=== PATIENT | male | born 1980 | race Caucasian/White ===

== ENCOUNTER 2019-02-17 19:11 | Emergency (ER) | payer OTHER ==
[2019-02-17 19:41] LABS: #Basophils 0.1 thou/uL (0.0-0.2); #Lymphocytes 1.1 thou/uL (1.20-3.40); #Monocytes 0.5 thou/uL (0.11-0.59); #Neutrophils 10.1 thou/uL (1.40-6.50); %Basophils 0.7 % (0.0-1.0); %Eosinophils 0.1 % (0.0-10.0); %Lymphocytes 9.1 % (21.0-51.0); Hemoglobin 16.8 g/dL (14.0-18.0); Mean Corpuscular HGB CONC 33.5 g/dL (32.0-36.0); Mean Corpuscular Hemoglobin 27.8 pg (27.0-31.0); Mean Platelet Volume 11.2 fL (7.4-10.4); Platelet Count 265 thou/uL (130-400); RBC Distribution Width 11.4 % (11.5-14.5); Red Blood Cell (RBC) Count 6.06 mill/uL (4.70-6.10); White Blood Cell (WBC) Count 11.8 thou/uL (4.8-10.8)
[2019-02-17 19:58] LABS: ALT (SGPT) 33 U/L (8-55); AST (SGOT) 27 U/L (5-34); Albumin 5.1 g/dL (3.5-5.0); Alkaline Phosphatase 63 U/L (40-150); Anion Gap 18 mmol/L (10-20); BUN (Urea Nitrogen) 14 mg/dL (8.9-20.6); Bilirubin, Total 0.4 mg/dL (0.2-1.2); Calc. Creatinine Clearance 0 mL/min (70-130); Calcium 10.2 mg/dL (7.8-10.44); Carbon Dioxide 25 mmol/L (22-29); Chloride 99 mmol/L (98-107); Estimated GFR-MDRD Greater than 90; Globulin 3.1 g/dL (2.4-3.5); Glucose 173 mg/dL (70-105); Lipase 13 U/L (8-78); Potassium 4.2 mmol/L (3.5-5.1); Protein, Total 8.2 g/dL (6.0-8.3); Sodium 138 mmol/L (136-145)
--- NOTE | 2019-02-17 19:58 | CT ---
Head CT without contrast: 02/17/2019 COMPARISON: None HISTORY: Headache, nausea, vomiting FINDINGS: Imaged paranasal sinuses and mastoid air cells well aerated. No displaced calvarial fractur e, intracranial hemorrhage, midline shift, or mass effect. IMPRESSION: No intracranial hemorrhage.
[2019-02-17] MEDS ORDERED: Ondansetron PF 4 MG/2 ML Vial ONE (20:08)
[2019-02-17] MEDS ORDERED: Morphine 4 MG/ML VIAL ONE (20:08)
--- NOTE | 2019-02-17 21:13 | CT ---
CT ANGIOGRAM OF THE HEAD 02/17/19 COMPARISON: None. HISTORY: Pain behind the right eye. TECHNIQUE: Axial CT imaging obtained at 1.5 mm intervals from vertex through skull base with IV contrast. Sanchez l and sagittal 3D reformatted imaging obtained. FINDINGS: The distal vertebral arteries are patent. The basilar artery and its branches are patent. There is no saccular aneurysm, high grade stenosis or vascular occlusion involving the posterior circulation. The imaged extracranial ICA is patent. The M1 segment and the MCA bifurcation appears unremarkable. The A1 segment, region of the anterior c ommunicating artery, and the distal DAYANA branches appear unremarkable. Distal MCA branches appear unre markable with no saccular aneurysm, high grade stenosis, or vascular occlusion seen involving the an terior circulation. No acute osseous abnormality. IMPRESSION: Unremarkable CT angiogram of the head. POS: OFF
[2019-02-17 21:29] LABS: Bilirubin Negative (Negative); Blood, Urine Negative (Negative); Clarity Clear (Clear); Glucose, Urine (Dipstick) Negative (Negative); Leukocyte Negative (Negative); Nitrite Negative (Negative); Protein, Urine (Dipstick) Negative (Neg-Trace); Specific Gravity, Urine 1.015 (1.005-1.030); Urobilinogen 0.2 mg/dL (0.2-1.0); pH, Urine 7.5 (5.0-9.0)
== END 2019-02-17 21:57 | disposition home or self-care (01) ==
LOC: SCSER 19:11
DX: R51 Headache (principal)
CPT/HCPCS: 70450; 70496; 80053; 81003; 83605; 83690; 85025; 96361; 96374; 96375; J2270; J2405

== ENCOUNTER 2019-02-23 12:37 | Emergency (ER) | payer OTHER ==
[2019-02-23 13:28] LABS: Bilirubin Negative (Negative); Blood, Urine Negative (Negative); Clarity Clear (Clear); Glucose, Urine (Dipstick) Negative (Negative); Leukocyte Negative (Negative); Nitrite Negative (Negative); Protein, Urine (Dipstick) Negative (Neg-Trace); Urobilinogen 0.2 mg/dL (0.2-1.0)
[2019-02-23] MEDS ORDERED: Lorazepam 2 MG/ML VIAL ONE (13:28)
[2019-02-23 13:52] LABS: ALT (SGPT) 43 U/L (8-55); AST (SGOT) 36 U/L (5-34); Alkaline Phosphatase 57 U/L (40-150); Anion Gap 18 mmol/L (10-20); BUN (Urea Nitrogen) 12 mg/dL (8.9-20.6); Bilirubin, Total 0.6 mg/dL (0.2-1.2); Calc. Creatinine Clearance 0 mL/min (70-130); Calcium 10.4 mg/dL (7.8-10.44); Carbon Dioxide 23 mmol/L (22-29); Chloride 100 mmol/L (98-107); Estimated GFR-MDRD Greater than 90; Globulin 3.2 g/dL (2.4-3.5); Glucose 131 mg/dL (70-105); Protein, Total 8.2 g/dL (6.0-8.3); Sodium 137 mmol/L (136-145)
[2019-02-23 13:56] LABS: Hemoglobin 17.9 g/dL (14.0-18.0); Lymphocytes 15 % (21-51); MDiff Complete? YES; Mean Corpuscular HGB CONC 33.5 g/dL (32.0-36.0); Mean Corpuscular Volume 83.6 fL (78.0-98.0); Mean Platelet Volume 10.4 fL (7.4-10.4); Monocytes 6 % (0-10); Neutrophil 68 % (42-75); Platelet Count 306 thou/uL (130-400); Platelet Morphology Comment Appears Adequate; RBC Distribution Width 11.7 % (11.5-14.5); Reactive Lymphocytes 11 % (0-10); Red Blood Cell (RBC) Count 6.41 mill/uL (4.70-6.10); White Blood Cell (WBC) Count 8.3 thou/uL (4.8-10.8)
== END 2019-02-23 15:38 | disposition home or self-care (01) ==
LOC: SCSER 12:37
DX: F41.9 Anxiety disorder, unspecified (principal); I10 Essential (primary) hypertension; R51 Headache
CPT/HCPCS: 80053; 81003; 83605; 85025; 96374; J2060